=== PATIENT | male | born 1965 | race Caucasian/White ===

== ENCOUNTER 2018-08-23 03:34 | Emergency (ER) | payer MEDICARE, MEDICAID ==
[2018-08-23 03:47] VITALS: BP 146/102
--- NOTE | 2018-08-23 04:02 | EDM.PDOC ---
ED HPI GENERAL MEDICAL PROBLEM - General Chief Complaint: Genitourinary Problem Stated Complaint: BLOOD IN URINE Time Seen by Provider: 08/23/18 03:54 Source of Information: Reports: Patient History Limitations: Reports: No Limitations - History of Present Illness INITIAL COMMENTS - FREE TEXT/NARRATIVE: 53-year-old male presents to the ED with gross hematuria containing clots. Patient states he fell about a week ago hard going downstairs on his buttock some wondered if he had damaged anything on the inside. He states he has to push very hard to get the urine to flow followed because of clot formation. He thought the urine was perhaps a little radiation color yesterday but is obviously passing dark red urine at this time which is painless. He's had a history of kidney stones but recently has had no signs of renal colic. He is a type II diabetic controlled with metformin and insulin. He has hypertension. Denies any abdominal pain or prongs with his bowel function. No history of bladder infections. Usually sleeps with a CPAP machine and does not get up at night to void. Patient reports he had a CT scan of his abdomen and pelvis performed in [place] within the last month because it was some concern on ultrasound that he may have a mass on his pancreas. Apparently the CT will do so. remembers he was told that his kidneys looked good on the CT. I'm going to obtain the so I will not have to repeat a CT in the ED today. Onset: Today Onset Date: 08/23/18 Onset Time: 02:00 (Need to void with strong pressure in his bladder and had to push hard to get the urine out with dark red blood and clots.) Duration: Hour(s): Location: Reports: Abdomen, Other (Suprapubic pressure discomfort. Difficulty passing urine which contains dark blood and clots.) Quality: Reports: Other (No pain.) Severity: Moderate Improves with: Reports: None (Urine is dark red in color with clots.) Worsens with: Reports: None Context: Denies: Activity, Exercise, Lifting, Sick Contact, Trauma, Other Associated Symptoms: Reports: Cough, Weakness. 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 (see below) (No change in his medications.) - Related Data Allergies Allergy/AdvReac Type Severity Reaction Status Date / Time No Known Allergies Allergy Verified 08/04/15 15:59 Home Meds: Home Meds Aspirin 325 mg PO DAILY 08/04/15 [History] Aspirin/Acetaminophen/Caffeine [Headache Relief Tablet] 1 dose PO Q6HR PRN 08/03 [History] Hydrochlorothiazide 25 mg PO DAILY 08/04/15 [History] Losartan Potassium [Cozaar] 100 mg PO DAILY 08/04/15 [History] Simvastatin [Zocor] 40 mg PO DAILY 08/04/15 [History] amLODIPine [Norvasc] 10 mg PO DAILY 08/04/15 [History] metFORMIN HCl [Metformin HCl] 1,000 mg PO BID 08/04/15 [History] Pantoprazole Sodium 40 mg PO BID #60 tablet. 08/05/15 [Rx] Exenatide Microspheres [Bydureon Pen] 2 mg SUBCUT WEEKLY 08/23/18 [History] Insulin Degludec [Tresiba] 90 units SUBCUT BEDTIME 08/23/18 [History] levoFLOXacin [Levaquin] 500 mg PO DAILY #9 tab 08/23/18 [Rx] Past Medical History HEENT History: Reports: Impaired Vision, Other (See Below) Other HEENT History: wears glasses Cardiovascular History: Reports: CAD, High Cholesterol, Hypertension, PVD, Stents, Other (See Below) Other Cardiovascular History: lower extremity edema, diastis recti, angiogram, claudication Respiratory History: Reports: Sleep Apnea (Wears a CPAP machine at bedtime), Other (See Below) Other Respiratory History: chronic cough Gastrointestinal History: Reports: GERD, Helicobacter Pylori Genitourinary History: Reports: Other (See Below) Other Genitourinary History: erectile dysfunction Musculoskeletal History: Reports: Back Pain, Chronic, Osteoarthritis, Other ( See Below) Other Musculoskeletal History: R knee pain, L shoulder pain Neurological History: Reports: Headaches, Chronic Endocrine/Metabolic History: Reports: Diabetes, Type II (Controlled with metformin and insulin.), Obesity/BMI 30+ - Past Surgical History Cardiovascular Surgical History: Reports: Other (See Below) Musculoskeletal Surgical History: Reports: Other (See Below) Social & Family History - Living Situation & Occupation Living situation: Reports: Occupation: Unemployed ED ROS GENERAL - Review of Systems Review Of Systems: See Below Constitutional: Reports: Fatigue. Denies: Fever, Chills, Malaise, Weakness, Decreased Appetite, Weight Loss (Chronically.) HEENT: Reports: Glasses Respiratory: Reports: Shortness of Breath. Denies: Wheezing, Pleuritic Chest Pain (On exertion.), Cough Cardiovascular: Reports: No Symptoms, Blood Pressure Problem, Dyspnea on Exertion (Occasionally around the ankles.), Edema. Denies: Chest Pain, Claudication, Lightheadedness, Orthopnea Endocrine: Reports: Fatigue GI/Abdominal: Reports: Abdominal Pain (Had some suprapubic pressure discomfort tonight with need to void but he had to bear down hard to get the urine to move likely because of clot in the proximal urethra) : Reports: Hematuria (Presentation to the ED because of gross hematuria tonight with clots). Denies: Frequency Musculoskeletal: Reports: Joint Pain (Shoulders back knees and hips.) Skin: Reports: No Symptoms Neurological: Reports: No Symptoms Psychiatric: Reports: No Symptoms ED EXAM, GI/ABD - Physical Exam Exam: See Below Exam Limited By: No Limitations General Appearance: Alert, WD/WN, No Apparent Distress, Other (Pulses 102. Respiratory rate 18 sats 94% on room air. BP is mildly elevated 146/102.) Eyes: Bilateral: Normal Appearance (No scleral icterus. No pallor.) Neck: Normal Inspection, Limited Range of Motion, Tender Lateral (Crepitus with rotation laterally.) Respiratory/Chest: No Respiratory Distress, Decreased Breath Sounds (Decreased air entry to both lung bases about 20%.). No: Lungs Clear, Normal Breath Sounds , Chest Non-Tender, Respiratory Distress Cardiovascular: Regular Rate, Rhythm, No Gallop, No Murmur, No Rub. No: Normal Peripheral Pulses GI/Abdominal Exam: Normal Bowel Sounds, Soft, Non-Tender, No Organomegaly, Other (Abdominal girth limits ability to palpate solid organs. No previous abdominal surgery.) (Male) Exam: No: No Hernia Back Exam: Normal Inspection, Decreased Range of Motion. No: CVA Tenderness (L) , CVA Tenderness (R) Extremities: Pedal Edema (1+ pitting edema around the ankles.) Neurological: Alert, Oriented, CN II-XII Intact, Normal Cognition Psychiatric: Normal Affect, Normal Mood Skin Exam: Warm, Dry, Intact, Normal Color, No Rash Course - Vital Signs Last Recorded V/S: Last Vital Signs Temp 36.4 C 08/23/18 03:44 Pulse 102 H 08/23/18 03:44 Resp 18 08/23/18 03:44 BP 146/102 H 08/23/18 03:44 Pulse Ox 94 L 08/23/18 03:44 - Orders/Labs/Meds Orders: Active Orders 24 hr Category Date Time Status Bladder Scan [RC] ASDIRECTED Care 08/23/18 04:20 Active CULTURE URINE [RM] Stat Lab 08/23/18 04:00 Received Labs: Laboratory Tests 08/23/18 08/23/18 08/23/18 Range/Units 04:00 04:15 04:15 WBC 4.91 (4.23-9.07) K/mm3 RBC 4.51 L (4.63-6.08) M/mm3 Hgb 14.3 D (13.7-17.5) gm/L Hct 43.3 (40.1-51.0) % MCV 96.0 H (79.0-92.2) fl MCH 31.7 (25.7-32.2) pg MCHC 33.0 (32.2-35.5) g/dl RDW Std Deviation 47.6 H (35.1-43.9) fL Plt Count 100 L (163-337) K/mm3 MPV 10.8 (9.4-12.3) fl Neutrophils % (Manual) 55 (40-60) % Band Neutrophils % 2 (0-10) % Lymphocytes % (Manual) 35 (20-40) % Atypical Lymphs % 0 % Monocytes % (Manual) 6 (2-10) % Eosinophils % (Manual) 2 (0.8-7.0) % Basophils % (Manual) 0 L (0.2-1.2) Platelet Estimate Decreased Plt Morphology Comment Normal Polychromasia 1+ slight Anisocytosis 1+ slight Ovalocytes 1+ slight RBC Morph Comment Not Reportable Sodium 139 (136-145) mEq/L Potassium 3.5 (3.5-5.1) mEq/L Chloride 102 (98-107) mEq/L Carbon Dioxide 25 (21-32) mEq/L Anion Gap 15.5 H (5-15) BUN 12 (7-18) mg/dL Creatinine 1.0 (0.7-1.3) mg/dL Est Cr Clr Drug Dosing 78.95 mL/min Estimated GFR (MDRD) > 60 (>60) mL/min BUN/Creatinine Ratio 12.0 L (14-18) Glucose 124 H (74-106) mg/dL Calcium 8.9 (8.5-10.1) mg/dL Total Bilirubin 0.7 (0.2-1.0) mg/dL AST 28 (15-37) U/L ALT 42 (16-63) U/L Alkaline Phosphatase 73 (46-116) U/L Total Protein 7.6 (6.4-8.2) g/dl Albumin 3.5 (3.4-5.0) g/dl Globulin 4.1 gm/dL Albumin/Globulin Ratio 0.9 L (1-2) Urine Color Red H (Yellow) Urine Appearance Turbid H (Clear) Urine pH 5.5 (5.0-8.0) Ur Specific [place] 1.015 (1.005-1.030) Urine Protein 3+ H (Negative) Urine Glucose (UA) 3+ H (Negative) Urine Ketones 2+ H (Negative) Urine Occult Blood 3+ H (Negative) Urine Nitrite Positive H (Negative) Urine Bilirubin 3+ H (Negative) Urine Urobilinogen 4.0 H (0.2-1.0) Ur Leukocyte Esterase 3+ H (Negative) Urine RBC Too numerous to cnt H (0-5) /hpf Urine WBC 5-10 H (0-5) /hpf Ur Squamous Epith Cells 0-5 (0-5) /hpf Urine Bacteria Moderate H (FEW) /hpf Urine Mucus Few (FEW) /hpf Meds: Medications Discontinued Medications Generic Name Dose Route Start Last Admin Trade Name Freq PRN Reason Stop Dose Admin Levofloxacin 500 mg 08/23/18 05:20 08/23/18 05:34 Levaquin PO 08/23/18 05:21 500 mg ONETIME ONE Administration - Radiology Interpretation Free Text/Narrative:: 53-year-old male presents to the ED with sudden onset of gross hematuria containing clots. Passage of urine was painless but he had a bare down very hard to get the urine to flow. No previous similar problems. He says CT scan of the abdomen and pelvis performed to rule out a pancreatic mass that was seen possibly out by ultrasound. Apparently his kidneys looked healthy. He has a history of renal lithiasis but no pain recently. Comment on CT scan of stones within the kidney tissues. He certainly has gross hematuria and a sample passed in the ED. Plan urinalysis. Routine labs CBC CMP to be done. I will try and obtain the copy of the CT scan done within the last month at [place] in [facility] as this should rule out any renal masses as he had apparently IV contrast. - Re-Assessments/Exams Free Text/Narrative Re-Assessment/Exam: 08/23/18 04:50 Total white count is 4.91. Differential pending. Hemoglobin is 14.3 with hematocrit of 43.3. MCV is 96.0. Platelet counts 100,000 i.e. low- normal. The urine analysis shows 3+ proteinuria 3+ glucosuria 2+ ketones 3+ occult blood positive nitrates 3+ bilirubin 4.0 urobilinogen 3+ leukocyte esterase red blood cells too numerous to count. 5-10 WBCs per high-power field 0 -5 squamous cells moderate bacteria. Urine culture will be ordered. We'll await the rest of his labs but tentatively he'll be started on Levaquin 500 mg by mouth daily for the next 10 days. 08/23/18 05:17 Differential on the white count is 55% neutrophils and 2% band cells. 35% lymphocytes. The slide shows 1+ polychromasia 1+ anisocytosis and 1+ ovalocytes. Sodium was 139 with a potassium low-normal at 3.5. Chloride 102 with a bicarbonate of 25. Anion gap is 15.5. BUN is 12 with a creatinine of 1.0. Glucose is 124. Calcium is 8.9. Liver function is normal. Total protein 7.6 with an albumin fraction low-normal at 3.5. Departure - Departure Time of Disposition: 05:21 Disposition: Home, Self-Care 01 Condition: Fair Clinical Impression: UTI, Urinary tract infectious disease Urinary tract infection Qualifiers: Urinary tract infection type: acute cystitis Hematuria presence: with hematuria Qualified Code(s): N30.01 - Acute cystitis with hematuria - Discharge Information *PRESCRIPTION DRUG MONITORING PROGRAM REVIEWED*: Not Applicable *COPY OF PRESCRIPTION DRUG MONITORING REPORT IN PATIENT BRENDEN: Not Applicable Prescriptions: levoFLOXacin [Levaquin] 500 mg PO DAILY #9 tab Instructions: Urinary Tract Infection, Adult, [id number], Prostatitis, Easy- to-Read Referrals: Jamshid Villar MD [Primary Care Provider] - Forms: ED Department Discharge Additional Instructions: Evaluation in the emergency room this morning in regards to development of overt : Gross hematuria which means obvious large amount of blood in the urine. Recent CT scan done in [place] in [place] within the last month did not reveal any abnormalities in the kidneys or ureters to suggest any tumor causing gross hematuria. The bladder is not well-visualized with CT scan of the abdomen. The urinalysis done here in the hospital suggests that there is moderate bacteria and some pus cells suggesting that there is an infection component to have caused blood to occurring in her urine. The urine has been cultured and we will try and grow out bacteria infection if present. In the meantime suggest use of Levaquin 500 mg once daily for the next 10 days. Of note keep a close eye in your blood sugars while on this medication as occasionally very low blood sugars can occur while taking this type of antibiotic. Blood sugars seem to be dipping quite low stop the antibiotic and return to medical care. Suggest follow -up in the clinic one week after finishing the antibiotic which will be 10 days. Repeat urinalysis is indicated at that time to make sure that there is no further blood in your urine. If there is then urology consultation is in order to look inside your bladder to make sure there is no bladder cancer or polyps. Often the prostate gland can be the source of infection in men especially in diabetics and sometimes prolonged use of Anaprox is required to eradicate the infection completely. In the meantime drink plenty of fluids the next day or 2 to ensure flushing of the urine so that it cannot clot and clogged off the urinary tract. If you find that you're unable to pass her urine due to clot formation you'll have to return to the ED for catheter placement. - My Orders Last 24 Hours: My Active Orders 08/23/18 04:00 CULTURE URINE [RM] Stat 08/23/18 04:20 Bladder Scan [RC] ASDIRECTED - Assessment/Plan Last 24 Hours: My Active Orders 08/23/18 04:00 CULTURE URINE [RM] Stat 08/23/18 04:20 Bladder Scan [RC] ASDIRECTED
[2018-08-23] MEDS ORDERED: Levofloxacin 250 MG Tab PO ONE (05:20)
== END 2018-08-23 05:39 | disposition home or self-care (01) ==
LOC: JD.ED 03:34
DX: N30.01 Acute cystitis with hematuria (principal); I10 Essential (primary) hypertension; E78.00 Pure hypercholesterolemia, unspecified; I25.10 Atherosclerotic heart disease of native coronary artery without angina pectoris; K21.9 Gastro-esophageal reflux disease without esophagitis; E11.9 Type 2 diabetes mellitus without complications; Z79.82 Long term (current) use of aspirin; Z79.4 Long term (current) use of insulin; Z79.899 Other long term (current) drug therapy
CPT/HCPCS: 36415; 51798; 80053; 81001; 85007; 85027; 87086; 99283; A9270

== ENCOUNTER 2018-09-01 19:57 | Emergency (ER) | payer MEDICARE, MEDICAID ==
[2018-09-01 20:36] VITALS: BP 136/88
[2018-09-01] MEDS ORDERED: Sodium Chloride 0.9% 10 ML Syringe FLUSH PRN (20:48)
[2018-09-01] MEDS ORDERED: Sodium Chloride 0.9% 1,000 ML IV SCH (21:00)
--- NOTE | 2018-09-01 21:03 | EDM.PDOC ---
ED HPI GENERAL MEDICAL PROBLEM - General Chief Complaint: Genitourinary Problem Stated Complaint: POSSIBLE UTI KIDNEY PAIN Time Seen by Provider: 09/01/18 20:29 Source of Information: Reports: Patient, RN Notes Reviewed - History of Present Illness INITIAL COMMENTS - FREE TEXT/NARRATIVE: 53-year-old male presents with recurrent hematuria. Senna to the ED Sunday, 2 days ago with hematuria, found to have UTI started on Levaquin 500 milligrams orally daily. He did have intermittent hematuria yesterday but also intermittently clear urine. A the urine was clear until this evening and he did start having hematuria again. Voiding discomfort when "there are clots" but otherwise no dysuria urgency or frequency. He has had some chills this evening. No nausea or vomiting. He does have some lower abdominal discomfort I merrily on the right with radiation to the right back. See record a few days ago for more details of that visit. Had had a prior abdominal CT about one month prior which did not show kidney stones at that time, therefore CT was not done on Sunday 2 days ago. Right Abdominal Pain Score (Numeric/FACES): 7 Right Back Pain Score (Numeric/FACES): 7 - Related Data Allergies Allergy/AdvReac Type Severity Reaction Status Date / Time No Known Allergies Allergy Verified 08/04/15 15:59 Home Meds: Home Meds Aspirin 325 mg PO DAILY 08/04/15 [History] Aspirin/Acetaminophen/Caffeine [Headache Relief Tablet] 1 dose PO Q6HR PRN 08/03 [History] Hydrochlorothiazide 25 mg PO DAILY 08/04/15 [History] Losartan Potassium [Cozaar] 100 mg PO DAILY 08/04/15 [History] Simvastatin [Zocor] 40 mg PO DAILY 08/04/15 [History] amLODIPine [Norvasc] 10 mg PO DAILY 08/04/15 [History] metFORMIN HCl [Metformin HCl] 1,000 mg PO BID 08/04/15 [History] Pantoprazole Sodium 40 mg PO BID #60 tablet. 08/05/15 [Rx] Exenatide Microspheres [Bydureon Pen] 2 mg SUBCUT WEEKLY 08/23/18 [History] Insulin Degludec [Tresiba] 90 units SUBCUT BEDTIME 08/23/18 [History] levoFLOXacin [Levaquin] 500 mg PO DAILY #9 tab 08/23/18 [Rx] Acetaminophen/HYDROcodone [[place] 325-5 MG] 1 tab PO Q6H PRN #10 tablet 09/01/18 [Rx] Past Medical History HEENT History: Reports: Impaired Vision, Other (See Below) Other HEENT History: wears glasses Cardiovascular History: Reports: CAD, High Cholesterol, Hypertension, PVD, Stents, Other (See Below) Other Cardiovascular History: lower extremity edema, diastis recti, angiogram, claudication Respiratory History: Reports: Sleep Apnea, Other (See Below) Other Respiratory History: chronic cough Gastrointestinal History: Reports: GERD, Helicobacter Pylori Genitourinary History: Reports: Other (See Below) Other Genitourinary History: erectile dysfunction Musculoskeletal History: Reports: Back Pain, Chronic, Other (See Below) Other Musculoskeletal History: R knee pain, L shoulder pain Neurological History: Reports: Headaches, Chronic Endocrine/Metabolic History: Reports: Diabetes, Type II - Past Surgical History Cardiovascular Surgical History: Reports: Other (See Below) Social & Family History - Tobacco Use Smoking Status *Q: Current Status Unknown - Living Situation & Occupation Living situation: Reports: Occupation: Unemployed ED ROS GENERAL - Review of Systems Review Of Systems: See Below Constitutional: Reports: Chills. Denies: Fever HEENT: Reports: No Symptoms Respiratory: Denies: Shortness of Breath Cardiovascular: Denies: Chest Pain GI/Abdominal: Reports: Abdominal Pain (Mostly right lower abdomen, right flank with radiation to right back). Denies: Diarrhea, Vomiting : Reports: Dysuria (Occasional with clots), Hematuria (Occasional with clots) , Urgency Musculoskeletal: Reports: Back Pain (Sided) Skin: Reports: No Symptoms Neurological: Reports: No Symptoms ED EXAM, RENAL/ - Physical Exam Exam: See Below General Appearance: Alert, Mild Distress Eye Exam: Bilateral Eye: PERRL Throat/Mouth: Normal Inspection, Normal Oropharynx Head: Atraumatic Neck: Supple, Full Range of Motion Respiratory/Chest: No Respiratory Distress, Lungs Clear, Normal Breath Sounds Cardiovascular: Tachycardia GI/Abdominal: Soft, Non-Tender Back Exam: CVA Tenderness (R) (Mild) Extremities: Normal Inspection Neurological: Alert, Oriented Skin Exam: Warm, Dry, Normal Color Course - Vital Signs Last Recorded V/S: Last Vital Signs Temp 98.7 F 06/02/19 20:34 Pulse 115 H 09/01/18 20:34 Resp 20 09/01/18 20:34 BP 136/88 09/01/18 20:34 Pulse Ox 92 L 09/01/18 20:34 - Orders/Labs/Meds Orders: Active Orders 24 hr Category Date Time Status Peripheral IV Care [RC] . DIRECTED Care 09/01/18 20:48 Active Peripheral IV Insertion Adult [OM.PC] Stat Oth 09/01/18 20:48 Ordered Labs: Laboratory Tests 09/01/18 09/01/18 09/01/18 Range/Units 20:30 21:05 21:05 WBC 5.91 (4.23-9.07) K/mm3 RBC 4.45 L (4.63-6.08) M/mm3 Hgb 14.0 (13.7-17.5) gm/L Hct 42.4 (40.1-51.0) % MCV 95.3 H (79.0-92.2) fl MCH 31.5 (25.7-32.2) pg MCHC 33.0 (32.2-35.5) g/dl RDW Std Deviation 46.8 H (35.1-43.9) fL Plt Count 110 L (163-337) K/mm3 MPV 10.7 (9.4-12.3) fl Neutrophils % (Manual) 66 H (40-60) % Band Neutrophils % 0 (0-10) % Lymphocytes % (Manual) 18 L (20-40) % Atypical Lymphs % 0 % Monocytes % (Manual) 12 H (2-10) % Eosinophils % (Manual) 2 (0.8-7.0) % Basophils % (Manual) 2 H (0.2-1.2) Platelet Estimate Adequate RBC Morph Comment Normal Sodium (136-145) mEq/L Potassium (3.5-5.1) mEq/L Chloride (98-107) mEq/L Carbon Dioxide (21-32) mEq/L Anion Gap (5-15) BUN (7-18) mg/dL Creatinine (0.7-1.3) mg/dL Est Cr Clr Drug Dosing mL/min Estimated GFR (MDRD) (>60) mL/min BUN/Creatinine Ratio (14-18) Glucose (74-106) mg/dL Calcium (8.5-10.1) mg/dL Total Bilirubin (0.2-1.0) mg/dL AST (15-37) U/L ALT (16-63) U/L Alkaline Phosphatase (46-116) U/L C-Reactive Protein 1.2 H* (<1.0) mg/dL Total Protein (6.4-8.2) g/dl Albumin (3.4-5.0) g/dl Globulin gm/dL Albumin/Globulin Ratio (1-2) Urine Color Maria R H (Yellow) Urine Appearance Turbid H (Clear) Urine pH 6.0 (5.0-8.0) Ur Specific [place] 1.020 (1.005-1.030) Urine Protein 2+ H (Negative) Urine Glucose (UA) Negative (Negative) Urine Ketones Negative (Negative) Urine Occult Blood 3+ H (Negative) Urine Nitrite Negative (Negative) Urine Bilirubin Negative (Negative) Urine Urobilinogen 0.2 (0.2-1.0) Ur Leukocyte Esterase Trace H (Negative) Urine RBC Too numerous to cnt H (0-5) /hpf Urine WBC 5-10 H (0-5) /hpf Ur Epithelial Cells 0-5 (0-5) /hpf Urine Bacteria Few (FEW) /hpf Urine Mucus Not seen (FEW) /hpf 09/01/18 Range/Units 21:05 WBC (4.23-9.07) K/mm3 RBC (4.63-6.08) M/mm3 Hgb (13.7-17.5) gm/L Hct (40.1-51.0) % MCV (79.0-92.2) fl MCH (25.7-32.2) pg MCHC (32.2-35.5) g/dl RDW Std Deviation (35.1-43.9) fL Plt Count (163-337) K/mm3 MPV (9.4-12.3) fl Neutrophils % (Manual) (40-60) % Band Neutrophils % (0-10) % Lymphocytes % (Manual) (20-40) % Atypical Lymphs % % Monocytes % (Manual) (2-10) % Eosinophils % (Manual) (0.8-7.0) % Basophils % (Manual) (0.2-1.2) Platelet Estimate RBC Morph Comment Sodium 138 (136-145) mEq/L Potassium 4.0 (3.5-5.1) mEq/L Chloride 101 (98-107) mEq/L Carbon Dioxide 25 (21-32) mEq/L Anion Gap 16.0 H (5-15) BUN 12 (7-18) mg/dL Creatinine 1.3 (0.7-1.3) mg/dL Est Cr Clr Drug Dosing 60.73 mL/min Estimated GFR (MDRD) 58 (>60) mL/min BUN/Creatinine Ratio 9.2 L (14-18) Glucose 136 H (74-106) mg/dL Calcium 9.5 (8.5-10.1) mg/dL Total Bilirubin 0.6 (0.2-1.0) mg/dL AST 19 (15-37) U/L ALT 24 (16-63) U/L Alkaline Phosphatase 83 (46-116) U/L C-Reactive Protein (<1.0) mg/dL Total Protein 7.8 (6.4-8.2) g/dl Albumin 3.6 (3.4-5.0) g/dl Globulin 4.2 gm/dL Albumin/Globulin Ratio 0.9 L (1-2) Urine Color (Yellow) Urine Appearance (Clear) Urine pH (5.0-8.0) Ur Specific [place] (1.005-1.030) Urine Protein (Negative) Urine Glucose (UA) (Negative) Urine Ketones (Negative) Urine Occult Blood (Negative) Urine Nitrite (Negative) Urine Bilirubin (Negative) Urine Urobilinogen (0.2-1.0) Ur Leukocyte Esterase (Negative) Urine RBC (0-5) /hpf Urine WBC (0-5) /hpf Ur Epithelial Cells (0-5) /hpf Urine Bacteria (FEW) /hpf Urine Mucus (FEW) /hpf Meds: Medications Discontinued Medications Generic Name Dose Route Start Last Admin Trade Name Freq PRN Reason Stop Dose Admin Hydrocodone Bitart/Acetaminophen 1 tab 09/01/18 22:59 09/01/18 23:08 [place] 325-5 Mg PO 09/01/18 23:00 1 tab ONETIME ONE Administration Hydromorphone HCl 0.5 mg 09/01/18 22:58 09/01/18 23:07 Dilaudid IVPUSH 09/01/18 22:59 0.5 mg ONETIME ONE Administration Sodium Chloride 1,000 mls @ 999 mls/hr 09/01/18 21:00 09/01/18 21:12 Normal Saline IV 999 mls/hr ONETIME [place] Administration Sodium Chloride 10 ml 09/01/18 20:48 09/01/18 21:13 Saline Flush FLUSH 10 ml ASDIRECTED PRN Administration Keep Vein Open - Re-Assessments/Exams Free Text/Narrative Re-Assessment/Exam: 09/02/18 01:56 UA today does still show some hematuria but WBCs and bacteria are almost gone. White blood count 5900, 66 segs 0 bands. Or he does not have a pyelonephritis at this time. Probable continued bladder irritation and inflammation from UTI, cystitis that just has not had adequate time to heal yet having only been on antibiotics 2 days. He does have a follow-up appointment at the clinic Re: Scheduled for Sunday 2 days from now. Charge instructions as documented. Departure - Departure Time of Disposition: 23:36 Disposition: Home, Self-Care 01 Condition: Fair Clinical Impression: UTI (urinary tract infection) Qualifiers: Urinary tract infection type: acute cystitis Hematuria presence: with hematuria Qualified Code(s): N30.01 - Acute cystitis with hematuria - Discharge Information Prescriptions: Acetaminophen/HYDROcodone [[place] 325-5 MG] 1 tab PO Q6H PRN #10 tablet PRN Reason: Pain Instructions: Urinary Tract Infection, Adult Referrals: Jamshid Villar MD [Primary Care Provider] - Forms: ED Department Discharge Additional Instructions: Drink plenty of water, continue current antibiotic as prescribed, see Dr. Lake Sunday as planned, return to ED as needed if symptoms worsening in any way. Tylenol for mild to moderate discomfort, hydrocodone if needed for severe pain. Do not drive or work when taking hydrocodone. - My Orders Last 24 Hours: My Active Orders 09/01/18 20:48 Peripheral IV Care [RC] . DIRECTED Peripheral IV Insertion Adult [OM.PC] Stat - Assessment/Plan Last 24 Hours: My Active Orders 09/01/18 20:48 Peripheral IV Care [RC] . DIRECTED Peripheral IV Insertion Adult [OM.PC] Stat
[2018-09-01] MEDS ORDERED: HYDROmorphone 0.5 MG/0.5 ML Syringe IVPUSH ONE (22:58)
[2018-09-01] MEDS ORDERED: Acetaminophen/HYDROcodone 325-5 MG Tab PO ONE (22:59)
== END 2018-09-01 23:47 | disposition home or self-care (01) ==
LOC: JD.ED 19:57
DX: N30.01 Acute cystitis with hematuria (principal); I10 Essential (primary) hypertension; E78.00 Pure hypercholesterolemia, unspecified; I25.10 Atherosclerotic heart disease of native coronary artery without angina pectoris; K21.9 Gastro-esophageal reflux disease without esophagitis; E11.9 Type 2 diabetes mellitus without complications; Z79.82 Long term (current) use of aspirin; Z79.84 Long term (current) use of oral hypoglycemic drugs; Z79.899 Other long term (current) drug therapy
CPT/HCPCS: 36415; 80053; 81001; 85007; 85027; 86140; 96361; 96374; 99283; A9270; J1170; J7040; 99284

== ENCOUNTER 2022-09-06 10:54 | Emergency (ER) | payer MEDICARE, MEDICAID ==
[2022-09-06] MEDS ORDERED: predniSONE 20 MG Tab PO ONE (11:05)
[2022-09-06] MEDS ORDERED: valACYclovir 500 MG Tab PO ONE (11:06)
[2022-09-06 12:32] LABS: BASOPHILS ABSOLUTE AUTO 0.02 K/mm3 (0.01-0.08); BASOPHILS PERCENT AUTO 0.5 % (0.1-1.2); EOSINOPHILS ABSOLUTE AUTO 0.12 K/mm3 (0.04-0.54); EOSINOPHILS PERCENT AUTO 3.1 (0.8-7.0); HEMATOCRIT 35.6 % (40.1-51.0); HEMOGLOBIN 12.1 gm/dl (13.7-17.5); IMMATURE GRAN ABSOLUTE AUTO 0.01 K/mm3 (0.00-0.10); IMMATURE GRAN PERCENT AUTO 0.3 % (<=1.0); LYMPHOCYTES ABSOLUTE AUTO 0.99 K/mm3 (1.32-3.57); LYMPHOCYTES PERCENT AUTO 25.7 % (21.8-53.1); MEAN CORPUSCULAR HEMOGLOBIN 35.1 pg (25.7-32.2); MEAN CORPUSCULAR VOLUME 103.2 fl (79.0-92.2); MEAN PLATELET VOLUME 11.3 fl (9.4-12.3); MONOCYTES ABSOLUTE AUTO 0.37 K/mm3 (0.30-0.82); MONOCYTES PERCENT AUTO 9.6 % (5.3-12.2); NEUTROPHILS ABSOLUTE AUTO 2.34 K/mm3 (1.78-5.38); NEUTROPHILS PERCENT AUTO 60.8 % (34.0-67.9); PLATELET COUNT,PLT 67 K/mm3 (163-337); RED BLOOD CELL COUNT 3.45 M/mm3 (4.63-6.08); WHITE BLOOD CELL COUNT,WBC 3.85 K/mm3 (4.23-9.07)
[2022-09-06 13:08] LABS: A/G RATIO 0.8 (1-2); ALANINE AMINOTRANSFERASE,ALT 36 U/L (16-63); ALKALINE PHOSPHATASE 80 U/L (46-116); ANION GAP 11.9 (5-15); ASPARTATE AMNIOTRANSFERASE,AST 42 U/L (15-37); BLOOD UREA NITROGEN,BUN 13 mg/dL (7-18); BUN/CREATININE RATIO 11.8 (14-18); CALCIUM 8.5 mg/dL (8.5-10.1); CARBON DIOXIDE,CO2 25 mEq/L (21-32); CHLORIDE,CL 106 mEq/L (98-107); CREATININE 1.1 mg/dL (0.7-1.3); ESTIMATED GFR 78 mL/min (>60); GLUCOSE RANDOM 163 mg/dL (70-99); POTASSIUM,K 3.9 mEq/L (3.5-5.1); SODIUM,NA 139 mEq/L (136-145)
[2022-09-06 13:25] LABS: SLIDE REVIEW ABNORMAL SMEAR
[2022-09-06 14:22] VITALS: BP 122/75; PULSE 90
== END 2022-09-06 14:10 | disposition home or self-care (01) ==
LOC: JD.ED 10:54
DX: G51.0 Bell's palsy (principal); I25.10 Atherosclerotic heart disease of native coronary artery without angina pectoris; E78.00 Pure hypercholesterolemia, unspecified; I10 Essential (primary) hypertension; K21.9 Gastro-esophageal reflux disease without esophagitis; E11.9 Type 2 diabetes mellitus without complications; Z79.82 Long term (current) use of aspirin; Z79.899 Other long term (current) drug therapy; Z79.4 Long term (current) use of insulin; Z88.8 Allergy status to other drugs, medicaments and biological substances
CPT/HCPCS: 36415; 80053; 85025; 99285; A9270; J7512; 99283

== ENCOUNTER 2023-01-31 14:19 | Emergency (ER) | payer MEDICARE, MEDICAID ==
[2023-01-31] MEDS ORDERED: Sodium Chloride 0.9% 10 ML Syringe FLUSH PRN (14:25)
[2023-01-31 14:54] LABS: BASOPHILS PERCENT AUTO 0.7 % (0.0-1.0); EOSINOPHILS ABSOLUTE AUTO 0.4 K/mm3 (0.0-0.4); EOSINOPHILS PERCENT AUTO 7.6 % (0.0-6.0); HEMATOCRIT 21.8 % (42.0-52.0); IMMATURE GRAN ABSOLUTE AUTO 0.01 K/mm3 (0.00-0.05); IMMATURE GRAN PERCENT AUTO 0.2 % (0.0-0.4); LYMPHOCYTES ABSOLUTE AUTO 1.3 K/mm3 (1.0-4.8); LYMPHOCYTES PERCENT AUTO 28.7 % (24.0-44.0); MEAN CORPUSCULAR HGB CONC 33.5 g/dl (32.0-36.0); MEAN PLATELET VOLUME 10.4 fl (9.4-12.4); MONOCYTES ABSOLUTE AUTO 0.6 K/mm3 (0.0-0.8); NEUTROPHILS ABSOLUTE AUTO 2.3 K/mm3 (1.8-7.7); NEUTROPHILS PERCENT AUTO 49.8 % (41.0-71.0); PLATELET COUNT,PLT 112 K/mm3 (150-400); RED BLOOD CELL COUNT 2.15 M/mm3 (4.52-5.90)
[2023-01-31 14:59] LABS: HEMOGLOBIN 7.3 gm/dl (14.0-18.0); MEAN CORPUSCULAR VOLUME 101.4 fl (83.0-99.0)
[2023-01-31 15:36] LABS: A/G RATIO 0.7 (1-2); ALBUMIN 2.7 g/dl (3.4-5.0); BILIRUBIN TOTAL 1.3 mg/dL (0.2-1.0); BUN/CREATININE RATIO 15.9 (14-18); CALCIUM 8.8 mg/dL (8.5-10.1); CREATININE 1.7 mg/dL (0.7-1.3); EST CRCL DRUG DOSING (CG) 42.74 mL/min; PROTEIN TOTAL,TP 6.6 g/dl (6.4-8.2)
[2023-01-31] MEDS: Potassium Chloride 10 MEQ in Premix Bag 1 BAG IV SCH ×4 (16:58→20:28)
[2023-01-31] MEDS ORDERED: Sodium Chloride 0.9% 1,000 ML IV SCH (17:15)
[2023-01-31 18:58] LABS: APPEARANCE,URINE TURBID (Clear); BILIRUBIN,URINE 1+ (Negative); COLOR,URINE RED (Yellow); GLUCOSE,URINE NEGATIVE (Negative); KETONES,URINE NEGATIVE (Negative); LEUKOCYTE ESTERASE,URINE NEGATIVE (Negative); NITRITE,URINE NEGATIVE (Negative); OCCULT BLOOD,URINE 3+ (Negative); PROTEIN,URINE 3+ (Negative); UROBILINOGEN,URINE 0.2 (0.2-1.0)
[2023-01-31 19:26] LABS: BACTERIA,URINE FEW /hpf (FEW); MUCUS,URINE FEW /hpf (FEW); RBC,URINE TOO NUMEROUS TO CNT /hpf (0-5); SQUAMOUS EPITHELIAL CELLS,UR 0-5 /hpf (0-5); WBC,URINE 0-5 /hpf (0-5)
[2023-01-31 23:42] VITALS: BP 132/69; PULSE 92
== END 2023-01-31 23:23 | disposition home or self-care (01) ==
LOC: JD.ED 14:19
DX: E87.6 Hypokalemia (principal); D64.9 Anemia, unspecified; R31.9 Hematuria, unspecified; I25.10 Atherosclerotic heart disease of native coronary artery without angina pectoris; I10 Essential (primary) hypertension; E78.00 Pure hypercholesterolemia, unspecified; K21.9 Gastro-esophageal reflux disease without esophagitis; E11.9 Type 2 diabetes mellitus without complications; Z79.899 Other long term (current) drug therapy; Z79.82 Long term (current) use of aspirin; Z88.8 Allergy status to other drugs, medicaments and biological substances
CPT/HCPCS: 36415; 36430; 71046; 80053; 81001; 83735; 83880; 84484; 85025; 86850; 86900; 86901; 86922; 93005; 96361; 96365; 96366; 99285; J3480; J3490; J7030; P9016; 93010; 99283

== ENCOUNTER 2023-06-26 19:03 | Emergency (ER) | payer MEDICARE, MEDICAID ==
[2023-06-26] MEDS: Ondansetron 4 MG/2 ML SDV IVPUSH ONE (19:58)
[2023-06-26] MEDS: Sodium Chloride 0.9% 1,000 ML IV SCH (19:58)
[2023-06-26 20:09] LABS: APPEARANCE,URINE CLEAR (Clear); BILIRUBIN,URINE NEGATIVE (Negative); COLOR,URINE YELLOW (Yellow); GLUCOSE,URINE 3+ (Negative); KETONES,URINE NEGATIVE (Negative); LEUKOCYTE ESTERASE,URINE NEGATIVE (Negative); NITRITE,URINE NEGATIVE (Negative); OCCULT BLOOD,URINE NEGATIVE (Negative); PROTEIN,URINE NEGATIVE (Negative)
[2023-06-26 20:14] LABS: BASOPHILS PERCENT AUTO 0.7 % (0.0-1.0); EOSINOPHILS ABSOLUTE AUTO 0.1 K/mm3 (0.0-0.4); EOSINOPHILS PERCENT AUTO 1.9 % (0.0-6.0); HEMATOCRIT 35.3 % (42.0-52.0); IMMATURE GRAN ABSOLUTE AUTO 0.01 K/mm3 (0.00-0.05); IMMATURE GRAN PERCENT AUTO 0.2 % (0.0-0.4); LYMPHOCYTES PERCENT AUTO 23.9 % (24.0-44.0); MEAN CORPUSCULAR HEMOGLOBIN 36.2 pg (28.0-32.0); MEAN CORPUSCULAR HGB CONC 36.3 g/dl (32.0-36.0); MEAN CORPUSCULAR VOLUME 99.7 fl (83.0-99.0); MEAN PLATELET VOLUME 10.6 fl (9.4-12.4); MONOCYTES ABSOLUTE AUTO 0.4 K/mm3 (0.0-0.8); MONOCYTES PERCENT AUTO 9.7 % (0.0-8.0); NEUTROPHILS ABSOLUTE AUTO 2.7 K/mm3 (1.8-7.7); NEUTROPHILS PERCENT AUTO 63.6 % (41.0-71.0); PLATELET COUNT,PLT 82 K/mm3 (150-400); RED BLOOD CELL COUNT 3.54 M/mm3 (4.52-5.90); WHITE BLOOD CELL COUNT,WBC 4.31 K/mm3 (3.9-11.3)
[2023-06-26 20:19] LABS: HEMOGLOBIN 12.8 gm/dl (14.0-18.0)
[2023-06-26] MEDS: Insulin Regular, Human 100 Units/ML 3 ML Vial SUBCUT ONE ×2 (20:32→21:40)
[2023-06-26 20:35] LABS: A/G RATIO 0.7 (1-2); ALBUMIN 3.5 g/dl (3.4-5.0); ANION GAP 13.5 (5-15); BUN/CREATININE RATIO 10.5 (14-18); CREATININE 1.9 mg/dL (0.7-1.3); EST CRCL DRUG DOSING (CG) 39.14 mL/min; PROTEIN TOTAL,TP 8.9 g/dl (6.4-8.2)
[2023-06-26 20:37] LABS: SLIDE REVIEW ABNORMAL SMEAR
[2023-06-26 21:05] LABS: CALCIUM 10.5 mg/dL (8.5-10.1); POTASSIUM,K 4.5 mEq/L (3.5-5.1)
[2023-06-26 23:16] VITALS: BP 113/69; PULSE 80
== END 2023-06-26 22:55 | disposition home or self-care (01) ==
LOC: JD.ED 19:03
DX: E11.65 Type 2 diabetes mellitus with hyperglycemia (principal); I10 Essential (primary) hypertension; I25.10 Atherosclerotic heart disease of native coronary artery without angina pectoris; J44.9 Chronic obstructive pulmonary disease, unspecified; K21.9 Gastro-esophageal reflux disease without esophagitis; E78.00 Pure hypercholesterolemia, unspecified; E66.9 Obesity, unspecified; E11.9 Type 2 diabetes mellitus without complications; Z88.8 Allergy status to other drugs, medicaments and biological substances; Z79.4 Long term (current) use of insulin; Z79.82 Long term (current) use of aspirin; Z79.84 Long term (current) use of oral hypoglycemic drugs; Z79.899 Other long term (current) drug therapy; Z68.35 Body mass index [BMI] 35.0-35.9, adult
CPT/HCPCS: 36415; 80053; 81003; 82947; 83690; 85025; 96361; 96374; 99284; J1815; J2405; J7030

== ENCOUNTER 2023-07-19 13:20 | Day surgery (SDC) | payer MEDICARE, MEDICAID ==
[2023-07-19] MEDS: Polymyxin B/Trimethoprim 10 ML Bottle EYERT SCH (14:09)
[2023-07-19] MEDS: Brimonidine 0.2% Ophth Soln 5 ML Bottle EYERT SCH (14:14)
[2023-07-19] MEDS ORDERED: Ondansetron 4 MG/2 ML SDV IVPUSH PRN (14:18)
[2023-07-19] MEDS: Phenylephrine 2.5% Ophth Soln 2 ML Bot EYERT SCH (14:19)
[2023-07-19] MEDS: Tropicamide 1% Ophth Soln 3 ML Bottle EYERT SCH (14:24)
[2023-07-19] MEDS: Tetracaine HCl/PF 0.5% 4 ML Bottle EYEBOTH SCH (15:15)
[2023-07-19] MEDS: EPINEPHrine 1 MG/ML SDV ONE (15:36)
[2023-07-19] MEDS: Lidocaine 1% 10 ML MDV ONE (15:36)
[2023-07-19] MEDS: Lidocaine 1% PF 2 ML SDV INJECT SCH (15:42)
[2023-07-19] MEDS: Cefuroxime 10 MG/ML SYRINGE EYERT SCH (15:56)
[2023-07-19] MEDS: Erythromycin Base 0.5% Ophth Oint 1 GM Tube ONE (15:57)
[2023-07-19] MEDS: Pilocarpine 4% Ophth Soln 15 ML Bot EYERT SCH (15:58)
[2023-07-19 16:19] VITALS: BP 123/67; PULSE 92
== END 2023-07-19 16:14 | disposition home or self-care (01) ==
LOC: JD.SDS 13:20
PROVIDERS: ATTEND Ophthalmology
DX: E11.36 Type 2 diabetes mellitus with diabetic cataract (principal); H25.813 Combined forms of age-related cataract, bilateral; F17.210 Nicotine dependence, cigarettes, uncomplicated; E78.00 Pure hypercholesterolemia, unspecified; I10 Essential (primary) hypertension; H16.103 Unspecified superficial keratitis, bilateral; H16.223 Keratoconjunctivitis sicca, not specified as Sjogren's, bilateral; H02.831 Dermatochalasis of right upper eyelid; H02.834 Dermatochalasis of left upper eyelid; H21.81 Floppy iris syndrome; D23.111 Other benign neoplasm of skin of right upper eyelid, including canthus; D48.5 Neoplasm of uncertain behavior of skin; Z88.8 Allergy status to other drugs, medicaments and biological substances; Z79.899 Other long term (current) drug therapy; Z98.890 Other specified postprocedural states
CPT/HCPCS: 66982; A9270; J0171; J0697; 00142; J3490

== ENCOUNTER 2023-08-23 10:09 | Day surgery (SDC) | payer MEDICARE, MEDICAID ==
[2023-08-23 11:13] VITALS: PULSE 80
[2023-08-23] MEDS: Polymyxin B/Trimethoprim 10 ML Bottle EYELF SCH (11:23)
[2023-08-23] MEDS: Brimonidine 0.2% Ophth Soln 5 ML Bottle EYELF SCH (11:28)
[2023-08-23] MEDS: Phenylephrine 2.5% Ophth Soln 2 ML Bot EYELF SCH (11:34)
[2023-08-23] MEDS: Tropicamide 1% Ophth Soln 3 ML Bottle EYELF SCH (11:39)
[2023-08-23] MEDS: Tetracaine HCl/PF 0.5% 4 ML Bottle EYEBOTH SCH (12:37)
[2023-08-23] MEDS: Lidocaine 1% PF 2 ML SDV INJECT SCH (12:57)
[2023-08-23] MEDS: Cefuroxime 10 MG/ML SYRINGE EYELF SCH (13:10)
[2023-08-23] MEDS: Pilocarpine 4% Ophth Soln 15 ML Bot EYELF SCH (13:10)
[2023-08-23 13:20] VITALS: BP 95/63
== END 2023-08-23 13:17 | disposition home or self-care (01) ==
LOC: JD.SDS 10:09
PROVIDERS: ATTEND Ophthalmology
DX: E11.36 Type 2 diabetes mellitus with diabetic cataract (principal); H25.812 Combined forms of age-related cataract, left eye; H21.81 Floppy iris syndrome; H21.42 Pupillary membranes, left eye; I10 Essential (primary) hypertension; E78.2 Mixed hyperlipidemia; J44.9 Chronic obstructive pulmonary disease, unspecified; K21.9 Gastro-esophageal reflux disease without esophagitis; I25.10 Atherosclerotic heart disease of native coronary artery without angina pectoris; F17.210 Nicotine dependence, cigarettes, uncomplicated; Z79.84 Long term (current) use of oral hypoglycemic drugs; Z79.899 Other long term (current) drug therapy
CPT/HCPCS: 66982; A9270; J0697; J3490

== ENCOUNTER 2024-07-12 18:21 | Emergency (ER) | payer MEDICARE, MEDICAID ==
[2024-07-12 19:17] LABS: BASOPHILS PERCENT AUTO 0.7 % (0.0-1.0); EOSINOPHILS ABSOLUTE AUTO 0.3 K/mm3 (0.0-0.4); EOSINOPHILS PERCENT AUTO 4.3 % (0.0-6.0); HEMATOCRIT 36.5 % (42.0-52.0); IMMATURE GRAN ABSOLUTE AUTO 0.02 K/mm3 (0.00-0.05); IMMATURE GRAN PERCENT AUTO 0.3 % (0.0-0.4); LYMPHOCYTES ABSOLUTE AUTO 1.4 K/mm3 (1.0-4.8); LYMPHOCYTES PERCENT AUTO 23.4 % (24.0-44.0); MEAN CORPUSCULAR HEMOGLOBIN 35.7 pg (28.0-32.0); MEAN CORPUSCULAR HGB CONC 35.6 g/dl (32.0-36.0); MEAN CORPUSCULAR VOLUME 100.3 fl (83.0-99.0); MEAN PLATELET VOLUME 10.4 fl (9.4-12.4); MONOCYTES ABSOLUTE AUTO 0.6 K/mm3 (0.0-0.8); MONOCYTES PERCENT AUTO 10.8 % (0.0-8.0); NEUTROPHILS ABSOLUTE AUTO 3.5 K/mm3 (1.8-7.7); NEUTROPHILS PERCENT AUTO 60.5 % (41.0-71.0); PLATELET COUNT,PLT 104 K/mm3 (150-400); RED BLOOD CELL COUNT 3.64 M/mm3 (4.52-5.90); WHITE BLOOD CELL COUNT,WBC 5.81 K/mm3 (3.9-11.3)
[2024-07-12] MEDS ORDERED: Sodium Chloride 0.9% 10 ML Syringe FLUSH PRN (19:26)
[2024-07-12 19:41] LABS: A/G RATIO 0.7 (1-2); ALANINE AMINOTRANSFERASE,ALT 38 U/L (16-63); ALBUMIN 3.2 g/dl (3.4-5.0); ALKALINE PHOSPHATASE 88 U/L (46-116); ASPARTATE AMNIOTRANSFERASE,AST 66 U/L (15-37); BILIRUBIN TOTAL 1.9 mg/dL (0.2-1.0); BLOOD UREA NITROGEN,BUN 17 mg/dL (7-18); BUN/CREATININE RATIO 13.1 (14-18); CALCIUM 9.9 mg/dL (8.5-10.1); CARBON DIOXIDE,CO2 26 mEq/L (21-32); CHLORIDE,CL 103 mEq/L (98-107); CREATININE 1.3 mg/dL (0.7-1.3); ESTIMATED GFR 63 mL/min (>60); GLUCOSE RANDOM 88 mg/dL (70-99); PROTEIN TOTAL,TP 8.1 g/dl (6.4-8.2); SODIUM,NA 137 mEq/L (136-145); TROPONIN I HIGH SENSITIVITY 6 pg/mL (<=76)
[2024-07-12 20:49] LABS: APPEARANCE,URINE CLEAR (Clear); BILIRUBIN,URINE NEGATIVE (Negative); COLOR,URINE YELLOW (Yellow); GLUCOSE,URINE NEGATIVE (Negative); KETONES,URINE TRACE (Negative); LEUKOCYTE ESTERASE,URINE NEGATIVE (Negative); NITRITE,URINE NEGATIVE (Negative); OCCULT BLOOD,URINE NEGATIVE (Negative); PROTEIN,URINE NEGATIVE (Negative); UROBILINOGEN,URINE >=8.0 (0.2-1.0)
[2024-07-12 20:50] LABS: INR 1.08; PROTHROMBIN TIME 11.4 SECONDS (9.7-12.0)
[2024-07-12 20:55] LABS: BACTERIA,URINE FEW /hpf (FEW); EPITHELIAL CELLS,URINE 0-5 /hpf (0-5); RBC,URINE 0-5 /hpf (0-5); WBC,URINE 0-5 /hpf (0-5)
[2024-07-12 20:56] LABS: MUCUS,URINE FEW /hpf (FEW)
[2024-07-12] MEDS: Iopamidol 612 MG/ML 100 ML Bottle IVPUSH ONE (21:13)
[2024-07-12] MEDS: Sodium Chloride 0.9% 10 ML Syringe FLUSH PRN (21:13)
[2024-07-12 23:21] VITALS: BP 101/50; PULSE 80
== END 2024-07-13 00:24 | disposition home or self-care (01) ==
LOC: JD.ED 18:21
DX: R17 Unspecified jaundice (principal); K76.82 Hepatic encephalopathy; E72.20 Disorder of urea cycle metabolism, unspecified; E80.6 Other disorders of bilirubin metabolism; I25.10 Atherosclerotic heart disease of native coronary artery without angina pectoris; I10 Essential (primary) hypertension; E78.00 Pure hypercholesterolemia, unspecified; K21.9 Gastro-esophageal reflux disease without esophagitis; E66.9 Obesity, unspecified; E11.9 Type 2 diabetes mellitus without complications; Z88.8 Allergy status to other drugs, medicaments and biological substances; Z79.899 Other long term (current) drug therapy
CPT/HCPCS: 36415; 74177; 80053; 81001; 82140; 84484; 85025; 85610; 93005; 99285; Q9967; 93010; 99284

== ENCOUNTER 2024-09-16 13:55 | Inpatient (IN) | payer MEDICARE, MEDICAID ==
[2024-09-16] MEDS ORDERED: Sodium Chloride 0.9% 10 ML Syringe FLUSH PRN (14:16)
[2024-09-16 14:50] LABS: BASOPHILS PERCENT AUTO 0.9 % (0.0-1.0); EOSINOPHILS ABSOLUTE AUTO 0.1 K/mm3 (0.0-0.4); EOSINOPHILS PERCENT AUTO 2.8 % (0.0-6.0); HEMATOCRIT 31.9 % (42.0-52.0); HEMOGLOBIN 11.3 gm/dl (14.0-18.0); IMMATURE GRAN ABSOLUTE AUTO 0.01 K/mm3 (0.00-0.05); IMMATURE GRAN PERCENT AUTO 0.2 % (0.0-0.4); LYMPHOCYTES PERCENT AUTO 23.9 % (24.0-44.0); MEAN CORPUSCULAR HEMOGLOBIN 36.2 pg (28.0-32.0); MEAN CORPUSCULAR HGB CONC 35.4 g/dl (32.0-36.0); MEAN CORPUSCULAR VOLUME 102.2 fl (83.0-99.0); MEAN PLATELET VOLUME 10.2 fl (9.4-12.4); MONOCYTES ABSOLUTE AUTO 0.5 K/mm3 (0.0-0.8); MONOCYTES PERCENT AUTO 11.7 % (0.0-8.0); NEUTROPHILS ABSOLUTE AUTO 2.6 K/mm3 (1.8-7.7); NEUTROPHILS PERCENT AUTO 60.5 % (41.0-71.0); PLATELET COUNT,PLT 79 K/mm3 (150-400); RED BLOOD CELL COUNT 3.12 M/mm3 (4.52-5.90); WHITE BLOOD CELL COUNT,WBC 4.27 K/mm3 (3.9-11.3)
[2024-09-16 15:08] LABS: INR 1.11; PROTHROMBIN TIME 11.7 SECONDS (9.7-12.0)
[2024-09-16 15:22] LABS: A/G RATIO 0.6 (1-2); ALBUMIN 2.7 g/dl (3.4-5.0); BILIRUBIN TOTAL 2.3 mg/dL (0.2-1.0); BUN/CREATININE RATIO 12.7 (14-18); CALCIUM 8.9 mg/dL (8.5-10.1); CREATININE 1.1 mg/dL (0.7-1.3); EST CRCL DRUG DOSING (CG) 66.77 mL/min; PROTEIN TOTAL,TP 7.3 g/dl (6.4-8.2); TSH 5.138 uIU/mL (0.358-3.74)
[2024-09-16] MEDS ORDERED: Ondansetron 4 MG/2 ML SDV IV PRN (15:56)
[2024-09-16] MEDS ORDERED: Acetaminophen 325 MG Tab PO PRN (15:56)
[2024-09-16] MEDS: Lactulose Soln 10 GM/15 ML 30 ML UD Cup PO ONE (16:13)
[2024-09-16 17:02] LABS: APPEARANCE,URINE CLEAR (Clear); BILIRUBIN,URINE NEGATIVE (Negative); COLOR,URINE YELLOW (Yellow); GLUCOSE,URINE NEGATIVE (Negative); KETONES,URINE NEGATIVE (Negative); LEUKOCYTE ESTERASE,URINE NEGATIVE (Negative); NITRITE,URINE NEGATIVE (Negative); OCCULT BLOOD,URINE NEGATIVE (Negative); PH,URINE 7.5 (5.0-8.0); PROTEIN,URINE 1+ (Negative)
[2024-09-16 17:22] LABS: BACTERIA,URINE FEW /hpf (FEW); MUCUS,URINE FEW /hpf (FEW); RBC,URINE 0-5 /hpf (0-5); WBC,URINE 0-5 /hpf (0-5)
[2024-09-16] MEDS ORDERED: 50% Dextrose in Water 50 ML Syringe IVPUSH PRN (17:45)
[2024-09-16] MEDS: Lactulose Soln 10 GM/15 ML 30 ML UD Cup PO SCH (17:53)
[2024-09-16] MEDS: Insulin Lispro 100 Unit/ML 3 ML KwikPen SUBCUT ONE (18:16)
[2024-09-16 19:49] LABS: FOLIC ACID 18.3 ng/mL (8.6-58.9)
[2024-09-16] MEDS: Insulin Lispro 100 Unit/ML 3 ML KwikPen SUBCUT SCH (21:08)
[2024-09-17 04:14] LABS: HEMATOCRIT 33.3 % (42.0-52.0); HEMOGLOBIN 11.6 gm/dl (14.0-18.0); MEAN CORPUSCULAR HEMOGLOBIN 35.6 pg (28.0-32.0); MEAN CORPUSCULAR HGB CONC 34.8 g/dl (32.0-36.0); MEAN CORPUSCULAR VOLUME 102.1 fl (83.0-99.0); MEAN PLATELET VOLUME 10.2 fl (9.4-12.4); PLATELET COUNT,PLT 95 K/mm3 (150-400); RED BLOOD CELL COUNT 3.26 M/mm3 (4.52-5.90); WHITE BLOOD CELL COUNT,WBC 4.95 K/mm3 (3.9-11.3)
[2024-09-17 04:58] LABS: A/G RATIO 0.6 (1-2); ALBUMIN 2.8 g/dl (3.4-5.0); ANION GAP 12.9 (5-15); BILIRUBIN TOTAL 2.4 mg/dL (0.2-1.0); BUN/CREATININE RATIO 8.3 (14-18); CALCIUM 9.2 mg/dL (8.5-10.1); CREATININE 1.2 mg/dL (0.7-1.3); EST CRCL DRUG DOSING (CG) 61.2 mL/min; POTASSIUM,K 3.9 mEq/L (3.5-5.1); PROTEIN TOTAL,TP 7.4 g/dl (6.4-8.2)
[2024-09-17 05:12] LABS: IRON,FE 152 ug/dL (65-175); PERCENT FE SATURATION 58 % (20-55); TRANSFERRIN 208 mg/dL (202-364)
[2024-09-17 05:15] LABS: TOTAL IRON BINDING CAPACITY 260 ug/dL (100-400)
[2024-09-17] MEDS: Lactulose Soln 10 GM/15 ML 30 ML UD Cup PO SCH (09:14)
[2024-09-17] MEDS: Aspirin 325 MG Tab.EC PO SCH (09:14)
[2024-09-17] MEDS: Finasteride 5 MG Tab PO SCH (09:14)
[2024-09-17] MEDS: Bumetanide 1 MG Tab PO SCH (09:14)
[2024-09-17] MEDS: Enoxaparin 40 MG/0.4 ML Syringe SUBCUT SCH (09:14)
[2024-09-17] MEDS: Spironolactone 100 MG Tab PO SCH (09:14)
[2024-09-17] MEDS: Carvedilol 3.125 MG Tab PO SCH (09:14)
[2024-09-17] MEDS: Tamsulosin 0.4 MG Cap.ER PO SCH (09:14)
[2024-09-17] MEDS: Pantoprazole 40 MG Tab.CR PO SCH (09:18)
[2024-09-17] MEDS: Tiotropium Bromide 4 GM Inhalation Spray (2.5mcg/1 dose; 10 doses) INH SCH (10:41)
[2024-09-17 12:05] VITALS: BP 120/71; PULSE 80
[2024-09-17] MEDS ORDERED: atorvaSTATin 20 MG Tab PO SCH (21:00)
== END 2024-09-17 13:35 | disposition home or self-care (01) | DRG 442 ==
LOC: JD.ED 13:55 → JD.MS 15:56
PROVIDERS: ADMIT Family Medicine; ATTEND Family Medicine
DX: R41.0 Disorientation, unspecified (principal); E72.20 Disorder of urea cycle metabolism, unspecified; I13.0 Hypertensive heart and chronic kidney disease with heart failure and stage 1 through stage 4 chronic kidney disease, or unspecified chronic kidney disease; K70.31 Alcoholic cirrhosis of liver with ascites; E11.22 Type 2 diabetes mellitus with diabetic chronic kidney disease; E11.51 Type 2 diabetes mellitus with diabetic peripheral angiopathy without gangrene; K76.82 Hepatic encephalopathy; F32.A Depression, unspecified; J44.9 Chronic obstructive pulmonary disease, unspecified; H54.7 Unspecified visual loss; I50.9 Heart failure, unspecified; R53.83 Other fatigue; G47.33 Obstructive sleep apnea (adult) (pediatric); K21.9 Gastro-esophageal reflux disease without esophagitis; M54.9 Dorsalgia, unspecified; G89.29 Other chronic pain; R51.9 Headache, unspecified; E11.65 Type 2 diabetes mellitus with hyperglycemia; E78.00 Pure hypercholesterolemia, unspecified; D53.9 Nutritional anemia, unspecified; D69.6 Thrombocytopenia, unspecified; I10 Essential (primary) hypertension; Z79.899 Other long term (current) drug therapy; I25.10 Atherosclerotic heart disease of native coronary artery without angina pectoris; E11.9 Type 2 diabetes mellitus without complications; Z95.5 Presence of coronary angioplasty implant and graft; Z90.89 Acquired absence of other organs; Z98.890 Other specified postprocedural states; Z91.199 Patient's noncompliance with other medical treatment and regimen due to unspecified reason; Z85.72 Personal history of non-Hodgkin lymphomas; E66.9 Obesity, unspecified; Z88.8 Allergy status to other drugs, medicaments and biological substances; Z79.82 Long term (current) use of aspirin; Z79.84 Long term (current) use of oral hypoglycemic drugs; Z68.36 Body mass index [BMI] 36.0-36.9, adult
CPT/HCPCS: 36415; 80053; 81001; 82140; 82607; 82728; 82746; 82947; 83540; 83735; 83880; 84439; 84443; 84466; 84484; 85025; 85027; 85610; 93005; 93010; 94640; 94760; 97116-GP; 97161-GP; 99285; A9270-GY; J1650; J1815